=== PATIENT | male | born 1950 | race Asian ===

== ENCOUNTER 2022-03-19 00:48 | Emergency (ER) | payer SELFPAY ==
[~2022-03-19] VITALS: Ht 175 cm; Wt 65.0 kg
[2022-03-19] MEDS ORDERED: ETOMIDATE IV SOLN 20 MG/10 ML VIAL IV ONE (00:55)
[2022-03-19] MEDS ORDERED: ROCURONIUM 10 MG/ML 5 ML SYRINGE IV ONE (00:55)
[2022-03-19] MEDS ORDERED: CEFEPIME INJECTION 1,000 MG in NS (IVPB) 50 ML IV ONE (01:00)
[2022-03-19] MEDS ORDERED: ASPIRIN 81 MG CHEW (CHILDREN'S ASA) PO ONE (01:00)
[2022-03-19] MEDS ORDERED: VANCOMYCIN INJECTION 750 MG in NS (IVPB) 100 ML IV ONE (01:00)
[2022-03-19] MEDS ORDERED: NITROGLYCERIN 0.4 MG SL TABS BTL 25'S SL PRN (01:00)
[2022-03-19] MEDS ORDERED: CALC0.253 PO (01:01)
[2022-03-19] MEDS ORDERED: GLIM1TAB4 PO (01:01)
[2022-03-19] MEDS ORDERED: ATOR10TA66 PO (01:01)
[2022-03-19] MEDS ORDERED: CARV6.25 PO (01:01)
[2022-03-19] MEDS ORDERED: FURO-125 PO (01:01)
[2022-03-19] MEDS ORDERED: ONDANSETRON 4 MG/2 ML (SDV) Z0FRAN ONE (01:03)
--- NOTE | 2022-03-19 01:03 | ED Respiratory ---
General Chief Complaint: Respiratory Problems Stated Complaint: SOB Source: patient Exam Limitations: no limitations History of Present Illness Date Seen by Provider: Mar 19, 2022 Time Seen by Provider: 00:40 Initial Comments The patient presents to the ER by EMS [facility] with chief complaint of shortness of air. Firefighters on the scene noted him to be 85% on room air. He does not use oxygen at baseline. He has not had any sick contacts. He is not having a cough. He had tight respirations wheezy and does not smoke. EMS gave him Solu-Medrol and DuoNeb. This brought his oxygen sats up to the mid 90s. He is not complaining of any chest pain. 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 No history of heart disease or stents or heart catheterizations. No nausea or vomiting. He is diabetic. Allergies and Home Medications Allergies Coded Allergies: No Known Drug Allergies (Unverified , 03/19/22) Patient Home Medication List Home Medication List Reviewed: Yes Atorvastatin Calcium (Atorvastatin Calcium) 10 Mg Tablet, Unknown Dose PO HS, (Reported) Entered as Reported by: MANI SOLORIO on 03/19/22100 Last Action: New Order Calcitriol (Calcitriol) 0.25 Mcg Capsule, Unknown Dose PO, (Reported) Entered as Reported by: MANI SOLORIO on 03/19/22100 Last Action: New Order Carvedilol (Coreg) 6.25 Mg Tablet, Unknown Dose PO BID, (Reported) Entered as Reported by: MANI SOLORIO on 03/19/22100 Last Action: New Order Furosemide (Lasix) 20 Mg Tablet, Unknown Dose PO, (Reported) Entered as Reported by: MANI SOLORIO on 03/19/22100 Last Action: New Order Glimepiride (Glimepiride) 1 Mg Tablet, Unknown Dose PO, (Reported) Entered as Reported by: MANI SOLORIO on 03/19/22100 Last Action: New Order Review of Systems Review of Systems Constitutional: diaphoresis, malaise, weakness EENTM: No ear discharge, No ear pain, No blurred vision Respiratory: No cough; dyspnea on exertion, short of breath, wheezing Cardiovascular: No chest pain, No edema, No Hx of Intervention, No palpitations, No syncope Gastrointestinal: No abdominal pain, No nausea, No vomiting Genitourinary: No discharge, No dysuria Musculoskeletal: No back pain, No joint pain Skin: No pruritus, No rash Psychiatric/Neurological: Denies Headache, Denies Numbness, Denies Paresthesia, Denies Pre-Existing Deficit All Other Systems Reviewed Negative Unless Noted: Yes Past Jglmucb-Sqektx-Odwjnp Hx Patient Social History Tobacco Use?: No Use of E-Cig and/or Vaping dev: No Physical Exam Vital Signs - First Documented 03/19/22 03/19/22 00:48 01:57 Temp 35.9 Pulse 131 Resp 26 B/P (MAP) 246/155 (185) Pulse Ox 96 O2 Delivery OxyMask O2 Flow Rate 9.00 FiO2 45 Capillary Refill : Height: '" Weight: lbs. oz. kg; BMI Method: General Appearance: WD/WN, severe distress Eyes: Bilateral Eye Normal Inspection, Bilateral Eye PERRL, Bilateral Eye EOMI HEENT: PERRL/EOMI, normal ENT inspection, TMs normal, pharynx normal Neck: full range of motion, supple, normal inspection Respiratory: respiratory distress (Oxygen saturation 91% on 6 L DuoNeb, 95% on 8 L by oxime mask), accessory muscle use, rales (All lung [place] bilateral symmetric) Cardiovascular: normal peripheral pulses, regular rate, rhythm Gastrointestinal: normal bowel sounds, non tender, soft Extremities: normal range of motion, normal capillary refill Neurologic/Psychiatric: alert, oriented x 3 Skin: cool, diaphoresis, damp Focused Exam Sepsis Stage: Severe Sepsis Possible Source: Pulmonary Lactate Level 03/19/22 00:55: Lactic Acid Level 2.09*H 03/19/22 03:15: Lactic Acid Level 0.72 Time of Focused Exam: 02:53 Respiratory: No Accessory Muscle Use, Rales, Respiratory Distress (Orotracheally intubated, oxygen saturation 100% on 40% FiO2, 475 tidal volume, 15 respirators and a PEEP of 5) Cardiovascular: Regular Rate, Rhythm, Normal Peripheral Pulses Capillary Refill: Less Than 3 Seconds Peripheral Pulses: 2+ Radial Pulses (R), 2+ Radial Pulses (L) Skin: normal color, warm/dry Lactic Acid Level Laboratory Tests Test 03/19/22 00:55 03/19/22 03:15 Lactic Acid Level 2.09 MMOL/L (0.50-2.00) *H 0.72 MMOL/L (0.50-2.00) Within 3hrs of presentation: Admin fluids, Admin ABX, Blood cultures prior to ABX's, Focus exam, Lactate level Procedures/Interventions Lumen: triple Central Line Procedure: betadine prep (Chlorhexidine), sterile drapes applied, sterile dressing applied Position: internal jugular (R) Anesthesia: Lidocaine Volume Anesthetic (ccs): 2 Complications: none Post Position: sutured, good blood return, position confirmed w/ CXR Risks, benefits and alternatives were discussed with the patient and the patient consented to the procedure. The patient was positioned in the usual format and using the usual sterile garments and drapes the patient was dressed out. The skin was thoroughly cleaned with the supplied chlorhexidine prep. After the prep had dried a sterile drape was placed. The 16 cm 7 [place] triple-lumen catheter was flushed with sterile saline. We used ultrasound guidance to pass the introducer needle into the right internal jugular without difficulty. A guidewire was placed easily without difficulty. No ectopy was seen on the monitor. The supplied 11 blade scalpel was used to make a 2 mm incision at the inferior portion of the introducer needle. The introducer needle was replaced with the dilator. The dilator was taken out and the patient had the central rosendo men of the triple lumen catheter threaded over the guidewire and placed at 13.5 cm. The guidewire was removed and the triple-lumen catheter was stitched in place using the supplied braided stitch at 2 different points. The catheter withdrew blood and flushed easily. A sterile dressing was placed over the catheter. The patient tolerated the procedure well. A chest x-ray was obtained that demonstrated no pneumothorax and a new interval central catheter over the shadow of the right internal jugular down the superior vena cava and terminating just proximal to the right atria. Reason for Intubation: Respiratory failure Date of ETT Placement: Mar 19, 2022 Time of ETT Placement: 01:00 Intubation Method: orotracheal Tube Size: 7.5 Medications: Etomidate (20 mg), Rocuronium (50) Positive End Tide CO2: Yes Breath Sounds after Intubation: bilateral-equal Intubation Complications: no complications Post Intubation Xray: Yes Good position couple centimeters above the bryanna with no evidence of pneum Progress/Results/Core Measures Suspected Sepsis SIRS Temperature: Pulse: Respiratory Rate: Laboratory Tests 03/19/22 00:55: White Blood Count 16.5H Blood Pressure / Mean: 03/19/22 00:55: Lactic Acid Level 2.09*H 03/19/22 03:15: Lactic Acid Level 0.72 Laboratory Tests 03/19/22 00:55: Creatinine 5.53H, INR Comment 0.9, Platelet Count 310, Total Bilirubin 0.3 Results/Orders Lab Results Laboratory Tests Test 03/19/22 00:55 03/19/22 01:00 03/19/22 01:20 03/19/22 01:32 Range/Units White Blood Count 16.5 H 4.3-11.0 10^3/uL Red Blood Count 4.06 L 4.30-5.52 10^6/uL Hemoglobin 11.6 L 13.3-17.7 g/dL Hematocrit 36 L 40-54 % Mean Corpuscular Volume 88 80-99 fL Mean Corpuscular Hemoglobin 29 25-34 pg Mean Corpuscular Hemoglobin Concent 33 32-36 g/dL Red Cell Distribution Width 12.6 10.0-14.5 % Platelet Count 310 130-400 10^3/uL Mean Platelet Volume 10.8 9.0-12.2 fL Immature Granulocyte % (Auto) 0 % Neutrophils (%) (Auto) 72 42-75 % Lymphocytes (%) (Auto) 18 12-44 % Monocytes (%) (Auto) 7 0-12 % Eosinophils (%) (Auto) 3 0-10 % Basophils (%) (Auto) 0 0-10 % Neutrophils # (Auto) 11.9 H 1.8-7.8 10^3/uL Lymphocytes # (Auto) 2.9 1.0-4.0 10^3/uL Monocytes # (Auto) 1.1 H 0.0-1.0 10^3/uL Eosinophils # (Auto) 0.5 H 0.0-0.3 10^3/uL Basophils # (Auto) 0.1 0.0-0.1 10^3/uL Immature Granulocyte # (Auto) 0.1 0.0-0.1 10^3/uL Neutrophils % (Manual) 71 % Lymphocytes % (Manual) 17 % Monocytes % (Manual) 9 % Band Neutrophils 3 % Blood Morphology Comment NORMAL Prothrombin Time 12.6 12.2-14.7 SEC INR Comment 0.9 0.8-1.4 Activated Partial Thromboplast Time 26 24-35 SEC D-Dimer 1.12 H 0.00-0.49 UG/ML Blood Gas Puncture Site RIGHT RADIAL Blood Gas Patient Temperature 96.9 Arterial Blood pH 7.20 *L 7.37-7.43 Arterial Blood Partial Pressure CO2 54 H 35-45 MMHG Arterial Blood Partial Pressure O2 67 L 79-93 MMHG Arterial Blood HCO3 20 L 23-27 MMOL/L Arterial Blood Total CO2 22.1 21.0-31.0 MMOL/L Arterial Blood Oxygen Saturation 90 L 94-100 % Arterial Blood Base Excess -6.7 L -2.5-2.5 MMOL/L Kevin Test YES-POS Blood Gas Ventilator Setting NO Blood Gas Inspired Oxygen 8L Sodium Level 141 135-145 MMOL/L Potassium Level 4.8 3.6-5.0 MMOL/L Chloride Level 106 98-107 MMOL/L Carbon Dioxide Level 18 L 21-32 MMOL/L Anion Gap 17 H 5-14 MMOL/L Blood Urea Nitrogen 77 H 7-18 MG/DL Creatinine 5.53 H 0.60-1.30 MG/DL Estimat Glomerular Filtration Rate 10 BUN/Creatinine Ratio 14 Glucose Level 324 H 70-105 MG/DL Lactic Acid Level 2.09 *H 0.50-2.00 MMOL/L Calcium Level 8.6 8.5-10.1 MG/DL Corrected Calcium 8.9 8.5-10.1 MG/DL Magnesium Level 1.9 1.6-2.4 MG/DL Total Bilirubin 0.3 0.1-1.0 MG/DL Aspartate Amino Transf (AST/SGOT) 17 5-34 U/L Alanine Aminotransferase (ALT/SGPT) 18 0-55 U/L Alkaline Phosphatase 175 H 40-136 U/L Troponin I 0.058 H <0.028 NG/ML C-Reactive Protein High Sensitivity 0.04 0.00-0.50 MG/DL B-Type Natriuretic Peptide 506.2 H <100.0 PG/ML Total Protein 7.3 6.4-8.2 GM/DL Albumin 3.6 3.2-4.5 GM/DL Beta-Hydroxybutyrate (Chem panel) 0.13 0.00-0.27 MMOL/L Procalcitonin 0.06 <0.10 NG/ML Influenza Type A (RT-PCR) Not Detected Not Detecte Influenza Type B (RT-PCR) Not Detected Not Detecte SARS-CoV-2 RNA (RT-PCR) Not Detected Not Detecte Urine Opiates Screen NEGATIVE NEGATIVE Urine Oxycodone Screen NEGATIVE NEGATIVE Urine Methadone Screen NEGATIVE NEGATIVE Urine Propoxyphene Screen NEGATIVE NEGATIVE Urine Barbiturates Screen NEGATIVE NEGATIVE Ur Tricyclic Antidepressants Screen NEGATIVE NEGATIVE Urine Phencyclidine Screen NEGATIVE NEGATIVE Urine Amphetamines Screen NEGATIVE NEGATIVE Urine Methamphetamines Screen NEGATIVE NEGATIVE Urine Benzodiazepines Screen NEGATIVE NEGATIVE Urine Cocaine Screen NEGATIVE NEGATIVE Urine Cannabinoids Screen NEGATIVE NEGATIVE Urine Color YELLOW Urine Clarity CLEAR Urine pH 6.0 5-9 Urine Specific [place] 1.020 1.016-1.022 Urine Protein 3+ H NEGATIVE Urine Glucose (UA) 3+ H NEGATIVE Urine Ketones NEGATIVE NEGATIVE Urine Nitrite NEGATIVE NEGATIVE Urine Bilirubin NEGATIVE NEGATIVE Urine Urobilinogen 0.2 < = 1.0 MG/DL Urine Leukocyte Esterase NEGATIVE NEGATIVE Urine RBC (Auto) 3+ H NEGATIVE Urine RBC 10-25 H /HPF Urine WBC NONE /HPF Urine Squamous Epithelial Cells 0-2 /HPF Urine Crystals NONE /LPF Urine Bacteria TRACE /HPF Urine Casts NONE /LPF Urine Mucus NEGATIVE /LPF Urine Culture Indicated CULTURE PENDING Test 03/19/22 03:15 Range/Units Lactic Acid Level 0.72 0.50-2.00 MMOL/L My Orders Orders - FRANC ANDERSON Cbc With Automated Diff (03/19/22 00:56) Comprehensive Metabolic Panel (03/19/22 00:56) Blood Culture (03/19/22 00:56) Sputum Culture (03/19/22 00:56) Urinalysis (03/19/22 00:56) Urine Culture (03/19/22 00:56) Protime With Inr (03/19/22 00:56) Partial Thromboplastin Time (03/19/22 00:56) Chest 1 View, Ap/Pa Only (03/19/22 00:56) Ed Iv/Invasive Line Start (03/19/22 00:56) Ed Iv/Invasive Line Start (03/19/22 00:56) Ekg Tracing (03/19/22 00:56) Troponin I [place]ira (03/19/22 00:56) Vital Signs Adult Sepsis Patie Q15M (03/19/22 00:56) O2 (03/19/22 00:56) Remove Rings In Anticipation O (03/19/22 00:56) Lactic Acid Analyzer (03/19/22 00:56) Influenza A And B By Pcr (03/19/22 00:56) Cefepime Injection (Maxipime Injection) (03/19/22 01:00) Vancomycin Injection (Vancomycin Injecti (03/19/22 01:00) Vancomycin Injection (Vancomycin Injecti (03/19/22 02:00) Covid 19 Inhouse Test (03/19/22 00:56) Magnesium (03/19/22 00:56) Aspirin Chewable Tablet (Baby Aspirin Ch (03/19/22 01:00) Nitroglycerin 0.4 Mg Btl 25's (Nitrostat (03/19/22 01:00) Bipap (Bilevel) Set Up (03/19/22 00:59) Bnp [place] (03/19/22 00:59) Fibrin Degradation Products (03/19/22 00:59) Hs C Reactive Protein (03/19/22 00:59) Procalcitonin (Pct) (03/19/22 00:59) Beta Hydroxybutyrate (03/19/22 01:01) Ondansetron Injection (Zofran Injectio (03/19/22 01:15) Vapotherm - Admin Rt Rfs (03/19/22 01:03) Arterial Blood Gas (03/19/22 01:03) Ondansetron Injection (Zofran Injectio (03/19/22 01:03) Manual Differential (03/19/22 00:55) Propofol Drip (Icu) (Diprivan Drip (Icu) (03/19/22 01:18) Nitroglycerin Ointment (Nitrobid Ointme (03/19/22 01:30) Nitroglycerin Ointment (Nitrobid Ointme (03/19/22 01:25) Drug Screen Stat (Urine) (03/19/22 01:47) Ayoub Cath (03/19/22 01:47) Ed Iv/Invasive Line Start (03/19/22 02:06) Ns Iv 500 Ml (Sodium Chloride 0.9%) (03/19/22 02:15) Midazolam Injection (Versed Injection) (03/19/22 03:57) Etomidate Injection (Amidate Injection) (03/19/22 00:55) Rocuronium 5 Ml Syringe (Rocuronium 5 Ml (03/19/22 00:55) Medications Given in ED Vital Signs/I&O 03/19/22 03/19/22 03/19/22 03/19/22 00:48 00:48 01:30 01:57 Temp 35.9 Pulse 131 111 86 Resp 26 16 B/P (MAP) 246/155 (185) 192/107 Pulse Ox 96 96 98 O2 Delivery OxyMask Venturi Mask O2 Flow Rate 9.00 FiO2 45 03/19/22 04:05 Temp 36.1 Pulse 64 Resp 15 B/P (MAP) 130/80 Pulse Ox 99 O2 Delivery Mechanical Ventilator O2 Flow Rate 40.00 Capillary Refill : Progress Note #1: Time: 02:40 Progress Note Made an attempt to leave a voicemail with the son in [place] unsuccessfully as the voicemail was full. We are very hesitant to use full amount of fluids initially as he looked like he was in heart failure and uses Lasix. He was not able to give a very good history because of his severe shortness of air. His BNP was only marginally elevated and his chest x-ray looks a little bit like pulmonary edema so we limited his exposure to excessive IV fluids. Progress Note #2: Time: 05:00 Progress Note Son called back we made conversation and informed him he was transferred. Questions were answered. ECG Initial ECG Impression Date: Mar 19, 2022 Initial ECG Impression Time: 01:17 Initial ECG Rate: 115 Initial ECG Rhythm: Normal Sinus Initial ECG Intervals: Normal Initial ECG Impression: Normal, Nonspecific Changes Initial ECG Comparisson: No Previous ECG Available Comment Sinus tachycardia with borderline 1 block elevation in the ST segments V1 V2. Diagnostic Imaging Diagonstic Imaging: Xray Plain Films/CT/US/NM/MRI: chest Comments ET tube in good position couple centimeters above the bryanna. There is no evidence of pneumothorax. The central line is seen not crossing the midline on the right side overlying the shadow of the superior vena cava terminating at about the level just above the right atria. Pulmonary vascular congestion and patchy pulmonary edema versus infiltrate both lungs. [facility], [place] NAME: [facility] REC#: [id number] PT STATUS: DEP ER : 1950 PHYSICIAN: FRANC ANDERSON MD ADMIT DATE: 03/19/22/ER Signed Date of Exam:03/19/22 CHEST 1 VIEW, AP/PA ONLY INDICATION: Shortness of air COMPARISON: None available TECHNIQUE: Single radiograph of the chest dated 03/19/2022. FINDINGS: Endotracheal tube is present with the distal tip overlying the tracheal air column above the level of the bryanna just inferior to the level the clavicular heads. Right IJ central venous catheter is present with the distal tip overlying the expected location of the superior aspect of the superior vena cava. The cardiac silhouette is within normal limits. Enteric catheter is present though the distal tip is not in the [id number] as it extends inferior to the iwtni-[id number] within the abdomen. Pulmonary vasculature is predominantly obscured. Significant mixed interstitial and airspace opacities are noted within the left mid and upper lung with additional right perihilar opacities also present. No significant pleural effusion. No pneumothorax. No acute osseous abnormality. IMPRESSION: Left greater than right multifocal pulmonary opacities, likely relates to an underlying infectious infiltrate. Recommend continued radiographic followup. Lines and tubes as described above. Dictated by: Dictated on workstation # [id number] Dict: 03/19/22702 Trans: 03/19/22847 CVB [id number] Interpreted by: JIMMY HALEY MD Electronically signed by: JIMMY HALEY MD 03/19/22 0848 Critical Care Note Critical Care Start Time: 00:40 Stop Time: 01:30 Total Time (minutes) 50m Progress I attest to 50 minutes of critical care time outside of procedures managing the critically ill patient and his rapidly deteriorating respiratory status, collecting history, trying to communicate with family, correlating with intensivists and the transfer. Departure Impression Primary Impression: Acute respiratory failure Qualified Codes: J96.01 - Acute respiratory failure with hypoxia; J96.02 - Acute respiratory failure with hypercapnia Additional Impressions: Cardiorenal syndrome with renal failure Acute heart failure Qualified Codes: I50.9 - Heart failure, unspecified Pneumonia Qualified Codes: J18.9 - Pneumonia, unspecified organism Severe sepsis Disposition: XF [facility] Condition: Stable Transfer Transfer Reason: Exceeds level of care (No inpatient dialysis) Time Spoke to Accepting Phy: 02:35 Transfer Progress Notes Discussed the case with Dr. Gray and he agrees to accept the patient to the ICU Transfer Time: 04:15 Transfer Facility: [place], [place] Method of Transfer: EMS Departure-Patient Inst. Referrals: UNKNOWN (PCP/Family) Primary Care Physician FRANC ANDERSON Mar 19, 2022 01:03
[2022-03-19 01:12] LABS: ABG BASE EXCESS -6.7 MMOL/L (-2.5-2.5); ABG OXYGEN SATURATION 90 % (94-100); ABG PCO2 54 MMHG (35-45); ABG PO2 67 MMHG (79-93); ABG TCO2 22.1 MMOL/L (21.0-31.0)
[2022-03-19 01:13] LABS: BASOPHILS # (AUTO) 0.1 10^3/uL (0.0-0.1); BASOPHILS % (AUTO) 0 % (0-10); EOSINOPHILS # (AUTO) 0.5 10^3/uL (0.0-0.3); EOSINOPHILS % (AUTO) 3 % (0-10); HEMATOCRIT 36 % (40-54); HEMOGLOBIN 11.6 g/dL (13.3-17.7); LYMPHOCYTES # (AUTO) 2.9 10^3/uL (1.0-4.0); LYMPHOCYTES % (AUTO) 18 % (12-44); MEAN CORPUSCULAR HEMOGLOBIN 29 pg (25-34); MEAN CORPUSCULAR HGB CONC 33 g/dL (32-36); MEAN CORPUSCULAR VOLUME 88 fL (80-99); MEAN PLATELET VOLUME 10.8 fL (9.0-12.2); MONOCYTES # (AUTO) 1.1 10^3/uL (0.0-1.0); MONOCYTES % (AUTO) 7 % (0-12); NEUTROPHILS # (AUTO) 11.9 10^3/uL (1.8-7.8); NEUTROPHILS % (AUTO) 72 % (42-75); PLATELET COUNT 310 10^3/uL (130-400); WHITE BLOOD COUNT 16.5 10^3/uL (4.3-11.0)
[2022-03-19 01:14] LABS: ALLENS TEST YES-POS; INSPIRED O2 8L; PATIENT TEMP 96.9; VENTILATOR NO
[2022-03-19] MEDS ORDERED: ONDANSETRON 4 MG/2 ML (SDV) Z0FRAN IVP ONE (01:15)
[2022-03-19] MEDS ORDERED: PROPOFOL DRIP (ICU) 100 ML IV ONE (01:18)
[2022-03-19 01:24] LABS: ALBUMIN 3.6 GM/DL (3.2-4.5); POTASSIUM 4.8 MMOL/L (3.6-5.0)
[2022-03-19] MEDS ORDERED: NITROGLYCERIN 2% OINT 1 GM UNIT DOSE PACKET ONE (01:25)
[2022-03-19 01:26] LABS: CALCIUM 8.6 MG/DL (8.5-10.1)
[2022-03-19 01:27] LABS: TOTAL PROTEIN 7.3 GM/DL (6.4-8.2)
[2022-03-19 01:28] LABS: FIBRIN DEGRADATION PRODUCTS 1.12 UG/ML (0.00-0.49); INR 0.9 (0.8-1.4); PROTHROMBIN TIME PATIENT 12.6 SEC (12.2-14.7)
[2022-03-19 01:29] LABS: BILIRUBIN,TOTAL 0.3 MG/DL (0.1-1.0)
[2022-03-19 01:30] LABS: CREATININE SERUM 5.53 MG/DL (0.60-1.30)
[2022-03-19] MEDS ORDERED: NITROGLYCERIN 2% OINT 1 GM UNIT DOSE PACKET TOP ONE (01:30)
[2022-03-19 01:33] LABS: MAGNESIUM 1.9 MG/DL (1.6-2.4)
[2022-03-19 01:37] LABS: BILIRUBIN,URINE NEGATIVE (NEGATIVE); CLARITY,URINE CLEAR; COLOR,URINE YELLOW; GLUCOSE, URINE (UA) 3+ (NEGATIVE); KETONES,URINE NEGATIVE (NEGATIVE); LEUKOCYTE ESTERASE ,URINE NEGATIVE (NEGATIVE); NITRITE,URINE NEGATIVE (NEGATIVE); PROTEIN,URINE 3+ (NEGATIVE)
[2022-03-19 01:44] LABS: BAND NEUTROPHILS 3 %; LYMPHOCYTES % (MANUAL) 17 %; MONOCYTES % (MANUAL) 9 %; NEUTROPHILS % (MANUAL) 71 %; RBC MORPH NORMAL
[2022-03-19 01:45] LABS: BACTERIA,URINE TRACE /HPF; SQUAMOUS EPITHELIAL CELL,UR 0-2 /HPF
[2022-03-19 01:57] VITALS: BP 169/86
[2022-03-19] MEDS ORDERED: VANCOMYCIN INJECTION 500 MG in NS (IVPB) 100 ML IV ONE (02:00)
[2022-03-19 02:09] LABS: AMPHETAMINE SCREEN, URINE NEGATIVE (NEGATIVE); BARBITURATE SCREEN URINE NEGATIVE (NEGATIVE); BENZODIAZEPINES SCREEN URINE NEGATIVE (NEGATIVE); CANNABINOID SCREEN, URINE NEGATIVE (NEGATIVE); COCAINE SCREEN URINE NEGATIVE (NEGATIVE); METHADONE STAT NEGATIVE (NEGATIVE); OPIATE SCREEN URINE NEGATIVE (NEGATIVE); OXYCODONE STAT NEGATIVE (NEGATIVE); PROPOXYPHENE STAT NEGATIVE (NEGATIVE); TRICYCLIC ANTIDEPRESSANTS SCRE NEGATIVE (NEGATIVE)
[2022-03-19] MEDS ORDERED: NS IV 500 ML 500 ML IV ONE (02:15)
[2022-03-19] MEDS ORDERED: MIDAZOLAM 5 MG/5 ML (VERSED) VIAL ONE (03:57)
[2022-03-19 04:05] VITALS: BP 130/80
--- NOTE | 2022-03-19 07:11 | Diagnostic Imaging Report ---
INDICATION: Shortness of air COMPARISON: None available TECHNIQUE: Single radiograph of the chest dated 03/19/2022. FINDINGS: Endotracheal tube is present with the distal tip overlying the tracheal air column above the level of the bryanna just inferior to the level the clavicular heads. Right IJ central venous catheter is present with the distal tip overlying the expected location of the superior aspect of the superior vena cava. The cardiac silhouette is within normal limits. Enteric catheter is present though the distal tip is not in the [id number]-[id number]-[id number] as it extends inferior to the yskbt-ee-sygj within the abdomen. Pulmonary vasculature is predominantly obscured. Significant mixed interstitial and airspace opacities are noted within the left mid and upper lung with additional right perihilar opacities also present. No significant pleural effusion. No pneumothorax. No acute osseous abnormality. IMPRESSION: Left greater than right multifocal pulmonary opacities, likely relates to an underlying infectious infiltrate. Recommend continued radiographic followup. Lines and tubes as described above. Dictated by: Dictated on workstation # [id number]
== END 2022-03-19 04:15 | disposition short-term general hospital (02) ==
LOC: ER 00:54
DX: A41.9 Sepsis, unspecified organism (principal); R65.20 Severe sepsis without septic shock; J18.9 Pneumonia, unspecified organism; J96.01 Acute respiratory failure with hypoxia; J96.02 Acute respiratory failure with hypercapnia; I13.0 Hypertensive heart and chronic kidney disease with heart failure and stage 1 through stage 4 chronic kidney disease, or unspecified chronic kidney disease; E11.22 Type 2 diabetes mellitus with diabetic chronic kidney disease; N18.9 Chronic kidney disease, unspecified; I50.9 Heart failure, unspecified; Z20.822 Contact with and (suspected) exposure to COVID-19
CPT/HCPCS: 31500; 36415; 51702; 71045; 80053; 80306; 81000; 82010; 82805; 83605; 83735; 83880; 84145; 84484; 85007; 85027; 85379; 85610; 85730; 86141; 87040; 87070; 87077; 87088; 87205; 87636; 93005; 94002; 94799; 99291